=== PATIENT | female | born 1940 | race Native Hawaiian/Other Pacific Islander ===

== ENCOUNTER 2019-11-28 19:01 | Emergency (ER) | payer OTHER ==
[~2019-11-28] VITALS: Ht 170.2 cm; Wt 58.1 kg
[2019-11-28 19:01] VITALS: BP 135/53; TEMP 98.1
[2019-11-28 19:50] LABS: PLATELET COUNT 242 K/uL (152-353)
[2019-11-28 20:05] LABS: POTASSIUM 3.5 mmol/L (3.6-5.2)
[2019-11-29] MEDS ORDERED: ONDA4TAB3 PO (03:26)
[2019-11-29] MEDS ORDERED: OXYC5TAB24 PO (03:28)
[2019-11-29] MEDS ORDERED: POTASSIUM CHLO20 ME2 PO (03:29)
[2019-11-29] MEDS ORDERED: ROSUVASTATIN CA10 MG PO (03:31)
[2019-11-29] MEDS ORDERED: TYLENOL325 MG PO ×2 (03:32→03:44)
[2019-11-29] MEDS ORDERED: ASPIRIN ADULT L81 M1 PO (03:33)
[2019-11-29] MEDS ORDERED: BUPROPION HYDR100 M1 PO (03:35)
[2019-11-29] MEDS ORDERED: CARV3.12 PO (03:37)
[2019-11-29] MEDS ORDERED: [UNRECOGNIZED DRUG - CODE] PO (03:39)
[2019-11-29] MEDS ORDERED: CIPROFLOXACIN500 M2 PO (03:40)
[2019-11-29] MEDS ORDERED: LANOXIN125 MCG PO (03:46)
[2019-11-29] MEDS ORDERED: APIX1TAB PO (03:48)
[2019-11-29] MEDS ORDERED: ENTRESTO 24-261 TAB PO (03:49)
[2019-11-29] MEDS ORDERED: TAMS0.4C PO (03:50)
[2019-11-29] MEDS ORDERED: LANTUS100 UNIT/M SC ×2 (03:56→04:09)
[2019-11-29] MEDS ORDERED: FURO20TA67 PO ×3 (03:58→04:13)
[2019-11-29] MEDS ORDERED: MEMA10TA2 PO (03:58)
[2019-11-29] MEDS ORDERED: REMERON SOLTAB15 MG PO (03:59)
[2019-11-29] MEDS ORDERED: NOVOLOG PE100 UNIT/M SC (04:03)
[2019-11-29] MEDS ORDERED: NOVOLOG FL100 UNIT/M SC ×2 (04:39→04:56)
== END 2019-11-28 21:10 | disposition other institution (70) ==
LOC: ED 19:01
PROVIDERS: Family Medicine
DX: F32.89 Other specified depressive episodes (principal); R46.89 Other symptoms and signs involving appearance and behavior; Z04.6 Encounter for general psychiatric examination, requested by authority
CPT/HCPCS: 80053; 85027; 87635; 93005; 99285; U0003

== ENCOUNTER 2019-12-12 06:03 | Inpatient (IN) | payer OTHER ==
[~2019-12-12] VITALS: Ht 170.2 cm; Wt 62.3 kg
[2019-12-12] VITALS (39 sets, daily range): BP systolic 59–124; BP diastolic 23–70; TEMP 97.4–98.7; Ht 170.2 cm; Wt 62.3 kg
[~2019-12-12 06:03] MED LIST: APIX1TAB PO; ASPIRIN ADULT L81 M1 PO; BUPROPION HYDR100 M1 PO; CARV3.12 PO; CIPROFLOXACIN500 M2 PO; ENTRESTO 24-261 TAB PO; FURO20TA67 PO; LANOXIN125 MCG PO; LANTUS100 UNIT/M SC; MEMA10TA2 PO; NOVOLOG FL100 UNIT/M SC; NOVOLOG PE100 UNIT/M SC; ONDA4TAB3 PO; OXYC5TAB24 PO; POTASSIUM CHLO20 ME2 PO; REMERON SOLTAB15 MG PO; ROSUVASTATIN CA10 MG PO; TAMS0.4C PO; TYLENOL325 MG PO; [UNRECOGNIZED DRUG - CODE] PO
[2019-12-12 07:30] LABS: PLATELET COUNT 309 K/uL (152-353)
[2019-12-12 07:50] LABS: PARTIAL THROMBOPLASTIN TIME 30.3 SECONDS (24.5-33.6)
[2019-12-12 07:59] LABS: POTASSIUM 5.2 mmol/L (3.6-5.2)
[2019-12-13] VITALS (35 sets, daily range): BP systolic 90–130; BP diastolic 31–74; TEMP 97.6–98.9
[2019-12-13 06:23] LABS: POTASSIUM 4.6 mmol/L (3.6-5.2)
[2019-12-13 06:24] LABS: PLATELET COUNT 273 K/uL (152-353)
[2019-12-13 20:15] LABS: PLATELET COUNT 253 K/uL (152-353)
[2019-12-14] VITALS (46 sets, daily range): BP systolic 65–124; BP diastolic 20–61; TEMP 97.8–100
[2019-12-14 05:26] LABS: PLATELET COUNT 220 K/uL (152-353)
[2019-12-14 06:03] LABS: POTASSIUM 3.8 mmol/L (3.6-5.2)
== END 2019-12-14 18:52 | disposition expired | DRG 193 ==
LOC: ED 06:06 → ICU 08:00
PROVIDERS: Emergency Medicine Emergency Medical Services; Internal Medicine Endocrinology, Diabetes & Metabolism; ADMIT Internal Medicine
PROC: 05HN33Z Insertion of Infusion Device into Left Internal Jugular Vein, Percutaneous Approach (ICD-10-PCS; principal; 2019-12-14)
DX: J18.8 Other pneumonia, unspecified organism (principal); R65.21 Severe sepsis with septic shock; G92 Toxic encephalopathy; N39.0 Urinary tract infection, site not specified; D62 Acute posthemorrhagic anemia; N17.9 Acute kidney failure, unspecified; I13.0 Hypertensive heart and chronic kidney disease with heart failure and stage 1 through stage 4 chronic kidney disease, or unspecified chronic kidney disease; B96.20 Unspecified Escherichia coli [E. coli] as the cause of diseases classified elsewhere; R11.10 Vomiting, unspecified; I48.91 Unspecified atrial fibrillation; I25.10 Atherosclerotic heart disease of native coronary artery without angina pectoris; E78.49 Other hyperlipidemia; E11.22 Type 2 diabetes mellitus with diabetic chronic kidney disease; N18.2 Chronic kidney disease, stage 2 (mild); I50.89 Other heart failure
CPT/HCPCS: 36415; 51702; 80053; 80202; 81000; 82271; 82550; 83605; 83986; 84484; 85027; 85610; 85730; 87040; 87077; 87086; 87088; 87186; 94760; 96360; 96361; 96365; 96366; 99285; C1768; J0132; J0171; J0696; J1265; J1720; J2270; J2405; J2543; J3370; J3490; P9047